=== PATIENT | female | born 2005 ===

== ENCOUNTER → 2024-11-30 15:20 | Outpatient (REF) | payer BC, SELFPAY | LOC: RAD 15:20 | PROVIDERS: ATTENDING PHYSICIAN Student in an Organized Health Care Education/Training Program | DX: D84.9 Immunodeficiency, unspecified (principal); M08.80 Other juvenile arthritis, unspecified site; M25.40 Effusion, unspecified joint; M25.60 Stiffness of unspecified joint, not elsewhere classified; R76.8 Other specified abnormal immunological findings in serum; R79.89 Other specified abnormal findings of blood chemistry; Z11.1 Encounter for screening for respiratory tuberculosis; Z11.59 Encounter for screening for other viral diseases; Z51.81 Encounter for therapeutic drug level monitoring | CPT/HCPCS: 73560; 73565 ==